=== PATIENT | female | born 1995 | race Caucasian/White ===

== ENCOUNTER 2020-05-16 19:33 | Emergency (ER) | payer OTHER ==
[2020-05-16 20:04] VITALS: BP 140/83; PULSE 110; TEMP 99.5; BMI 30.7
[2020-05-16] MEDS ORDERED: ACETAMINOPHEN 500 MG TABLET (FP) PO ONE (20:06)
--- NOTE | 2020-05-16 20:08 | PDOC ---
Rapid Medical Evaluation Chief Complaint: Cold Symptoms Time Seen by Provider: 05/16/20 19:40 Medical Evaluation: Allergies Allergy/AdvReac Type Severity Reaction Status Date / Time No Known Allergies Allergy Verified 10/07/14 21:11 Vital Signs Temp Pulse Resp BP Pulse Ox 99.5 F 110 H 20 140/83 98 05/16/20 20:01 05/16/20 20:01 05/16/20 20:01 05/16/20 20:01 05/16/20 20:01 05/16/20 20:04 HPI: COVID-19 CDC guideline data points: The patient is a 25yo F presents with suspected COVID-19 with associated symptoms of fever, dry cough, nasal congestion, myalgias, complicated by this/these comorbidities: 9wks gestation. denies vaginal bleeding or abdominal pain. ROS: NEGATIVE: difficulty breathing, shortness of breath, chest pain, lightheadedness, dizziness, nausea, vomiting and diarrhea. Other 12 point ROS reviewed and negative. Exam: General: NAD, Well-Appearing, Awake, Alert Oriented x3. Vital signs stable. ENT: No rhinorrhea or nasal congestion. Neck: FROM, no midline tenderness. Lungs: Clear to auscultation bilaterally without wheezes, rhonchi or rales. Normal excursion. Patient is able to speak in full sentences. Heart: HR: 110. Regular rhythm, S1-S2 present, no murmurs rubs or gallops. Abdomen: Non-distended. MSK/Extremities: No decrease ROM, No obvious deformities. No obvious cyanosis noted. Neuro: Normal Gait, Cranial Nerves II through XII Grossly Intact. Skin: No obvious rashes, bruising. Color Normal Appearing. Assessment/Plan: nasal congestion, myalgias, Cough, fever Patient has a history of this/these comorbidities: 9wks gestation, denies recent travel and known COVID exposure. Patient does not meet testing criteria at this time. ASSESSMENT: Denies recent travel and known Covid exposure. Treatment: Tylenol 975mg PO now Covid-19 testing Discharge Discharge Disposition - Diagnosis Counseled about COVID-19 virus infection URI (upper respiratory infection) Qualifiers: URI type: unspecified viral URI Qualified Code(s): J06.9 - Acute upper respiratory infection, unspecified - Discharge Dispostion Disposition: HOME Condition at time of disposition: Stable Decision to Admit order: No - Referrals - Patient Instructions Printed Discharge Instructions: DI for Viral Upper Respiratory Infection -- Adult, [facility]-Coronavirus Instructions, [facility] COVID-19 Isolation Protocol - Post Discharge Activity
[2020-05-16] MEDS ORDERED: ACETAMINOPHEN 325 MG TABLET (FP) ONE (20:12)
== END 2020-05-16 20:39 | disposition home or self-care (01) ==
LOC: JER 19:33 → JERFT 19:33
DX: J06.9 Acute upper respiratory infection, unspecified (principal)
CPT/HCPCS: 99283-25; U0003

== ENCOUNTER 2022-06-09 18:54 | Emergency (ER) | payer OTHER ==
[2022-06-09 19:18] VITALS: BP 127/85; PULSE 85; RESP 18; TEMP 98.1; BMI 25.0
[2022-06-09] MEDS ORDERED: KETOROLAC TROMETHAMINE 15 MG/ML VIAL IVPUSH ONE (21:31)
[2022-06-09] MEDS ORDERED: DEXAMETHASONE SOD PHOSPHATE 10 MG/1 ML VIAL IVPUSH ONE (21:31)
[2022-06-09] MEDS ORDERED: DEXAMETHASONE SOD PHOSPHATE 10 MG/1 ML VIAL ONE (22:09)
[2022-06-09] MEDS ORDERED: KETOROLAC TROMETHAMINE 15 MG/ML VIAL ONE (22:10)
[2022-06-09 22:37] LABS: BASO % 0.4 % (0-2.0); EOS % 1.9 % (0-4.5); HEMATOCRIT 40.7 % (32.4-45.2); HEMOGLOBIN 13.8 GM/dL (10.7-15.3); LYMPH % 19.4 % (8-40); MCH 29.4 pg (25.7-33.7); MEAN CELL VOLUME 86.5 fl (80-96); MEAN PLT VOLUME 8.2 fl (7.5-11.1); MONO % 6.9 % (3.8-10.2); NEUT % 71.4 % (42.8-82.8); PLATELET COUNT 229 10^3/uL (134-434); RBC 4.71 M/mm3 (3.60-5.2); RDW 13.6 % (11.6-15.6); WHITE BLOOD COUNT 9.8 K/mm3 (4.0-10.0)
[2022-06-09 22:58] LABS: CALCIUM 8.8 mg/dL (8.5-10.1); THROAT:GRP A STREP DETECTED (NOTDETECTED)
[2022-06-09 22:59] LABS: ALBUMIN 3.7 g/dl (3.4-5.0); BLOOD UREA NITROGEN 17.6 mg/dL (7-18)
[2022-06-09 23:01] LABS: CREATININE 0.7 mg/dL (0.55-1.3)
[2022-06-09 23:03] LABS: BILIRUBIN,TOTAL 0.4 mg/dL (0.2-1); TOT PROT 7.4 g/dl (6.4-8.2)
[2022-06-09] MEDS ORDERED: AMOXICILLIN 500 MG CAPSULE (FP) PO ONE (23:08)
[2022-06-09] MEDS ORDERED: AMOXICILLIN 500 MG CAPSULE (FP) ONE (23:30)
== END 2022-06-09 23:54 | disposition home or self-care (01) ==
LOC: JER 18:54
PROC: 3E033NZ Introduction of Analgesics, Hypnotics, Sedatives into Peripheral Vein, Percutaneous Approach (ICD-10-PCS; principal; 2022-06-09)
PROC: 3E033GC Introduction of Other Therapeutic Substance into Peripheral Vein, Percutaneous Approach (ICD-10-PCS; 2022-06-09)
DX: R07.0 Pain in throat (principal)
CPT/HCPCS: 0241U-QW; 36415; 80053; 85025; 86308; 87651; 99285-25; J1100